=== PATIENT | female | born 1990 | race Caucasian/White ===

== ENCOUNTER 2019-02-02 00:37 | Emergency (ER) | payer MEDICAID, OTHER ==
[2019-02-02 04:05] LABS: URINE BLOOD (Dip) POC Trace-intact (NEGATIVE); URINE KETONES (Dip) POC Negative (NEGATIVE); URINE LEUKOCYTE EST (Dip) POC Negative (NEGATIVE); URINE NITRITE (Dip) POC Negative (NEGATIVE); URINE TOTAL PROTEIN POC Negative (NEGATIVE)
[2019-02-02] MEDS: ACETAMINOPHEN 325 MG TAB PO (04:48)
== END 2019-02-02 05:09 | disposition home or self-care (01) ==
LOC: FTE 00:37
DX: O9A.211 Injury, poisoning and certain other consequences of external causes complicating pregnancy, first trimester (principal); S39.012A Strain of muscle, fascia and tendon of lower back, initial encounter; X58.XXXA Exposure to other specified factors, initial encounter; Y92.9 Unspecified place or not applicable; Z3A.01 Less than 8 weeks gestation of pregnancy
CPT/HCPCS: 81003; 99282